=== PATIENT | male | born 1995 | race Caucasian/White ===

== ENCOUNTER 2019-06-10 07:31 | Inpatient (IN) | payer OTHER ==
[~2019-06-10] VITALS: Ht 162.6 cm; Wt 60.0 kg
--- NOTE | 2019-06-10 07:45 | NUR ---
PTE LLEGA EN AMBULANCIA DE CRUCERO POR ABDOMINAL PAIN. SE ACOMODA EN PASILLO. SE MANTIENE BAJO OBSERVACION.
--- NOTE | 2019-06-10 08:28 | NUR ---
SE ORIENTA A PACIENTE SOBRE TRATAMIENTO MEDICO ORDENADO POR DR UGARTE, SE MARY MUESTRAS DE LABORATORIO MEDIANTE TECNICAS ASEPTICAS Y SE ORIENTA SOBRE PROCESO PARA REALIZACION DE SONOGRAMA ABDOMINAL. SE MANTIENE BAJO OBSERVACION POR CAMBIOS EN CONDICION.
[2019-06-15] MEDS ORDERED: AMOX1TAB5 PO (15:53)
[2019-06-15] MEDS ORDERED: PROTONIX40 M1 PO (15:53)
== END 2019-06-15 18:13 | disposition home or self-care (01) | DRG 417 ==
LOC: ER 07:31 → SEC-K 13:59 → MEDI 13:59 → SURH 13:59 → SURG 16:56 → SURH 17:02 → MEDI 06-11 16:38 → SURG 06-15 11:25
PROVIDERS: Surgery; ADMIT Student in an Organized Health Care Education/Training Program
PROC: BF37ZZZ Magnetic Resonance Imaging (MRI) of Pancreas (ICD-10-PCS; 2019-06-10)
PROC: BW40ZZZ Ultrasonography of Abdomen (ICD-10-PCS; 2019-06-10)
PROC: 0FT44ZZ Resection of Gallbladder, Percutaneous Endoscopic Approach (ICD-10-PCS; principal; 2019-06-13 11:30)
DX: K80.00 Calculus of gallbladder with acute cholecystitis without obstruction (principal); K85.10 Biliary acute pancreatitis without necrosis or infection; A41.9 Sepsis, unspecified organism; K82.8 Other specified diseases of gallbladder